=== PATIENT | male | born 1985 | race Caucasian/White ===

== ENCOUNTER → 2020-01-09 | Outpatient (CLI) | payer OTHER ==
--- NOTE | 2020-01-04 09:31 | NUR ---
INSTRUCTED PT TO TAKE ALL MEDS EXCEPT ADVIL, MOTRIN OR ALEVE.
[2020-01-09] VITALS (13 sets, daily range): BP systolic 108–157; BP diastolic 65–91; PULSE 56–81
[~2020-01-09] VITALS: Ht 167.6 cm; Wt 78.9 kg
[~2020-01-09] MED LIST: EFFEXOR-XR150 MG PO; FLEXERIL 1010 MG/TAB PO; MELATONIN3 M1 PO; PRIL40 PO; PRINIVIL5 MG PO; SYNTHROID0.05 MG/TA PO; SYNTHROID0.5 MG IV
[2020-01-09 10:50] LABS: PROTHROMBIN TIME 11.5 SECONDS (9.7-12.8)
--- NOTE | 2020-01-09 11:10 | NUR ---
PT TAKEN TO ULTRASOUND VIA AMBULATORY BY STAFF. MONITORING EQUIPMWNT PLACED ON PT. IMAGES TAKEN AND SENT TO .
--- NOTE | 2020-01-09 11:35 | NUR ---
SAMPLES TAKEN. PROCEDURE COMPLETED. PT PLACED INTO SITTING POSITION. SITE HAS SMALL AMT OF BLOOD NOTED ON DRESSING.
== END ==
LOC: COL.RAD 12-19 13:00
PROVIDERS: Internal Medicine Gastroenterology
DX: D69.6 Thrombocytopenia, unspecified (principal); R16.1 Splenomegaly, not elsewhere classified; R74.8 Abnormal levels of other serum enzymes